=== PATIENT | female | born 1995 | race African-American/Black ===

== ENCOUNTER 2019-11-08 12:16 | Emergency (ER) | payer OTHER ==
--- OUTSIDE RECORDS SUMMARY | 2019-11-08 12:18 | XMS REPORT | Continuity of Care Document ---
:1995 Author Organization [facility] t Address [address] [place] [address] Care Team Providers Name Role Phone Stalin Avendano MD Attending Clinician Problems This patient has no known problems. Allergies, Adverse Reactions, Alerts This patient has no known allergies or adverse reactions. Medications This patient has no known medications. Procedures This patient has no known procedures. Encounters Start End Encounter Admission Attending Care Care Encounter Source Date/Time Date/Time Type Type Clinicians Facility Department ID 2019-11-07 2019-11-07 Emergency ABIGAIL Avendano [phone] [id number] 07:31:00 11:04:00 Fareed Veras [id number] [place] [id number] [place] [phone] [id number] Results This patient has no known results.
--- OUTSIDE RECORDS SUMMARY | 2019-11-08 12:18 | XMS REPORT | Summary of Care ---
:1995 Author Organization [facility] - [facility] Address [address] [place] [address] Care Team Providers Name Role Phone Pcp, Does Not Have A Primary Care Provider Reason for Referral Radiology Services (STAT) Status Reason Specialty Diagnoses / Referred By Referred To Procedures Contact Contact New Request Diagnostic Diagnoses Upper respiratory tract infection, unspecified type Fareed Avendano Radiology Procedures XR CHEST 1 TRINA Gant MD [address] [address] Reason for Visit Reason Comments Sore Throat Ear Pain Nosebleed Auth/Cert Status Reason Specialty Diagnoses / Referred By Referred To Procedures Contact Contact Emergency Medicine [facility] Em ergency Dept [address] [place] [id number] Fax: Encounter Details Date Type Department Care Team Description 11/07/2019 Emergency ADC-Emergency Fareed Avendano, Upper re spiratory tract infection, unspecified type (Primary Dx); Department Bronchitis [address] [place] [address] [address] [place] [address] [id number] [place], [place] [id number] Allergies No Known Allergiesdocumented as of this encounter (statuses as of 11/07/2019) Medications Medication Sig Dispensed Refills Start Date End Date Status azithromycin 250 mg Take 1 tablet by 6 tablet 0 11/07/2019 Active tabletIndications: mouth Upper respiratory SEE-INSTRUCTIONS. tract infection, Take 500 mg day unspecified type 1, then 250 mg days 2 to 5. albuterol 90 Inhale 2 Puffs 8.5 g 0 11/07/2019 A ctive mcg/actuation every 4 (four) inhalerIndications: hours as needed Upper respiratory for Wheezing or tract infection, Shortness of unspecified type Breath. predniSONE 20 mg Take 2 tablets by 12 tablet 0 11/08/2019 10/0 07/2019 Active tabletIndications: mouth daily for 6 Upper respiratory days. tract infection, unspecified type benzonatate 100 mg Take 1 capsule by 20 capsule 0 11/07/2019 Active capsuleIndications: mouth 3 (three) Upper respiratory times daily as tract infection, needed for Cough. unspecified type documented as of this encounter (statuses as of 11/07/2019) Active Problems No known active problemsdocumented as of this encounter (statuses as of 11/07/2019) Social History Tobacco Use Types Packs/Day Years Used Date Never Assessed Sex Assigned at Date Recorded Not on file COVID-19 Exposure Response Date Recorded In the last month, have you been in contact with No / Unsure 11/07/2019 7:27 AM CDT someone who was confirmed or suspected to have Coronavirus / COVID-19? documented as of this encounter Last Filed Vital Signs Vital Sign Reading Time Taken Comments Blood Pressure 128/77 11/07/2019 7:29 AM CDT Pulse 71 11/07/2019 7:29 AM CDT Temperature 37.1 C (98.7 F) 11/07/2019 7:29 AM CDT Respiratory Rate 16 11/07/2019 7:29 AM CDT Oxygen Saturation 100% 11/07/2019 7:29 AM CDT Inhaled Oxygen Concentration - - Weight 66.2 kg (146 lb) 11/07/2019 7:29 AM CDT Height - - Body Mass Index - - documented in this encounter Discharge Instructions Fareed Alan MD - 11/07/2019DIAGNOSIS 1. UPPER RESPIRATORY INFECTION 2. MILD BRONCHITIS 3. RECURRENT NOSEBLEEDING NO LIFE-THREATENING FINDINGS ON TODAY'S EXAM. PROCEDURES IN THE ER TODAY: NONE MEDICATIONS ADMINISTERED IN THE ER TODAY: PREDNISONE AZITHROMYCIN YOUR PRESCRIPTIONS AND [id number] MEDICATION RECOMMENDATIONS: FOR THE NOSE BLEED, RECOMMEND USING AFRIN NASAL SPRAY, 2 SPRAY IN THE BLEEDING NOSTRIL. SQUEEZE SOFTPART OF NOSTRILS/NOSE CLOSED FOR 15 MINUTES. REPEAT SQUEEZING NOSE UNTIL BLEEDING STOPS. AFRIN IS AVAILABLE [id number] WITHOUT A PRESCRIPTION. RECOMMEND PREDNISONE PRESCRIBED UNTIL ALL GONE FOR BRONCHITIS RECOMMEND AZITHROMYCIN (AN ANTIBIOTIC) PRESCRIBED UNTIL ALL GONE RECOMMEND TESSALON (BENZONATATE) PRESCRIBED FOR COUGH RECOMMEND ALBUTEROL INHALER PRESCRIBED FOR WHEEZING AND/OR SHORTNESS OF BREATH SPECIAL CARE INSTRUCTIONS: SEE ATTACHMENTS FOLLOW-UP RECOMMENDATIONS: RECOMMEND FOLLOW-UP WITH A PRIMARY CARE PROVIDER IN A WEEK, ESPECIALLY IF NO IMPROVEMENT IN SYMPTOMS. TO FOLLOW-UP WITHIN THE [facility], TRY THESE OPTIONS (CLINIC APPOINTMENTS AVAILABLE ON [id number] BASIS): 1. SCHEDULE AN APPOINTMENT ONLINE AT [email or web address] 2. OR CALL THE [facility] AT OR 3. OR CALL YOUR [facility] PHYSICIAN'S OFFICE DIRECTLY IF YOU ARE ALREADY AN ESTABLISHED [facility] PATIENT. RETURN TO ER FOR WORSENING OF SYMPTOMS. AttachmentsThe following attachments cannot be sent through Care Everywhere. Bronchitis, Acute (Tristanian)Nosebleed (Tristanian)Oxymetazoline nasal spray (Tristanian)Azithromycin tablets (Tristanian)Albuterol inhalation aerosol (Tristanian) Benzonatate capsules (Tristanian)documented in this encounter ED Notes Shanta Aly RN - 11/07/2019 7:28 AM CDTPatient c/o sore throat, nose bleeding and bilateral ear pain that started yesterday. Patient arrived here from [place] with [facility] and thinks the climate change may have affected her. Fareed Avendano MD - 11/07/2019 7:22 AM CDT [facility] Emergency Department Note Patient Name: Fabiana Oneal Date of : 1995 24 year old female Treatment Room: [address] Primary Care Physician: No primary care provider on file. Patient Escorted by: Self [9] Mode of Arrival: Personal means [1] EMS Treatment Prior to ED Arrival: Travel and Exposure Screening: Symptoms Does patient have any of these symptoms?: (not recorded) Exposure Screening Has patient had contact with someone with a communicable disease in the last month?: (not recorded) Diseases exposed to:: (not recorded) Is Patient ?: (not recorded) Exposure Date: (not recorded) Chief Complaint: Chief Complaint Patient presents with Sore Throat Ear Pain Nosebleed History of Present Illness: Travelling with [employer] from [place] for [place] for assistance with amoeba water supplyissue. Reports couple days of right ear ache, no discharge or bleeding. Recurrent nose bleeding, resolves without medication. (+) nasal congestion. Sore throat. No fever. No dysphagia. No speech change. Episodic dyspnea without respiratory distress. Maybe wheezing. Episodic non-productive cough. Non-focal chest tightness, episodic, presently resolved. No nausea, vomiting, diarrhea. No known close sick contacts. History of possible asthma as child, but no albuterol use for several years. Returning to [place] in 1 week. History provided by: Patient Past Medical History/Immunizations: History reviewed. No pertinent past medical history. Allergies: No Known Allergies Past Social History: Substance & Sexual Activity No substance use or sexual activity history on file. Past Surgical History: History reviewed. No pertinent surgical history. Review of Systems: Review of Systems Constitutional: Negative for fever. HENT: Positive for congestion, ear pain, nosebleeds and sore throat. Eyes: Negative. Respiratory: Positive for cough, chest tightness and shortness of breath. Cardiovascular: Negative. Gastrointestinal: Negative. Genitourinary: Negative. Musculoskeletal: Negative. Skin: Negative. Neurological: Negative. Psychiatric/Behavioral: Negative. Physical Exam: ED Triage Vitals [11/07/19 0729] Weight 66.2 kg (146 lb) Actual or estimated Height BP 128/77 Pulse 71 Resp 16 Temp 37.1 C (98.7 F) Temp source Oral SpO2 100 % Measured on Room air Physical Exam Vitals signs and nursing note reviewed. Constitutional: General: She is not in acute distress. Appearance: Normal appearance. She is not ill-appearing, toxic-appearing or diaphoretic. HENT: Head: Normocephalic and atraumatic. Right Ear: Tympanic membrane, ear canal and external ear normal. Left Ear: Tympanic membrane, ear canal and external ear normal. Nose: Nose normal. Mouth/Throat: Mouth: Mucous membranes are moist. Pharynx: No oropharyngeal exudate or posterior oropharyngeal erythema. Eyes: Extraocular Movements: Extraocular movements intact. Conjunctiva/sclera: Conjunctivae normal. Pupils: Pupils are equal, round, and reactive to light. Cardiovascular: Rate and Rhythm: Normal rate and regular rhythm. Pulmonary: Effort: Pulmonary effort is normal. No respiratory distress. Breath sounds: Normal breath sounds. No stridor. No wheezing, rhonchi or rales. Chest: Chest wall: No tenderness. Musculoskeletal: Normal range of motion. Lymphadenopathy: Cervical: Cervical adenopathy (left) present. Skin: General: Skin is warm and dry. Neurological: General: No focal deficit present. Mental Status: She is alert. Psychiatric: Mood and Affect: Mood normal. Radiology: Hospital Encounter on 11/07/19 XR CHEST 1 VW Narrative XR CHEST 1 VW HISTORY: 24 years-old; Female; dyspnea, cough COMPARISON: None FINDINGS: The lungs are clear with no focal consolidation. There is no pleural effusion or pneumothorax. The cardiomediastinal silhouette is normal. No acute osseous abnormality is identified. S-shaped curvature of the spine is seen. Impression No acute cardiopulmonary abnormality Preliminary Report Dictated by Resident: Kelsea Arias I, Felipe Sepulveda MD., have reviewed this study and agree with the above report. Lab Results (24h): Recent Results (from the past 24 hour(s)) ADC,CLC OR LCC ONLY - INFLUENZA A & B DIRECT ANTIGEN Collection Time: 11/07/19 9:32 AM Specimen: NASOPHARYNGEAL SWAB Result Value Ref Range Influenza A Negative Negative Influenza B Negative Negative RAPID STREP SCREEN FOR GROUP A Collection Time: 11/07/19 9:32 AM Specimen: THROAT; Swab Result Value Ref Range Streptococcus pyogenes (group A) antigen Positive (A) Negative COVID-19 (ID NOW RAPID TESTING) Collection Time: 11/07/19 9:34 AM Specimen: NASOPHARYNGEAL SWAB Result Value Ref Range SARS-CoV-2 Rapid ID NOW Not Detected Not Detected EKG: none Orders and Treatments: Orders Placed This Encounter Procedures XR CHEST 1 VW ADC,CLC OR LCC ONLY - INFLUENZA A & B DIRECT ANTIGEN RAPID STREP SCREEN FOR GROUP A COVID-19 (ID NOW RAPID TESTING) Orders Placed This Encounter Medications predniSONE (DELTASONE) tablet 40 mg azithromycin (ZITHROMAX) tablet 500 mg azithromycin 250 mg tablet albuterol 90 mcg/actuation inhaler predniSONE 20 mg tablet benzonatate 100 mg capsule ED COURSE MDM: MDM Reviewed: nursing note and vitals Interpretation: labs and x-ray Scoring Tools: No data recorded Diagnosis/Impression: ICD-10-CM ICD-9-CM 1. Upper respiratory tract infection, unspecified type J06.9 465.9 2. Bronchitis J40 490 Disposition/Condition: ED Disposition ED Disposition Condition Comment Disch - Home Stable Discharge Medications: Patient's Medications START taking these medications ALBUTEROL 90 MCG/ACTUATION INHALER Inhale 2 Puffs every 4 (four) hours as needed for Wheezing orShortness of Breath. AZITHROMYCIN 250 MG TABLET Take 1 tablet by mouth SEE-INSTRUCTIONS. Take 500 mg day 1, then 250 mg days 2 to 5. BENZONATATE 100 MG CAPSULE Take 1 capsule by mouth 3 (three) times daily as needed for Cough. PREDNISONE 20 MG TABLET Take 2 tablets by mouth daily for 6 days. CONTINUE taking these medications which have NOT CHANGED No medications on file START taking Modified Medications as Prescribed No medications on file STOP taking these medications No medications on file Follow-up: PCP upon return home Electronically signed by: Fareed Avendano MD 11/07/2019 7:47 AM documented in this encounter Plan of Treatment Health Maintenance Due Date Last Done Comments VARICELLA VACCINES (1 of 2 - 07/06/1995 2-dose childhood series) HPV VACCINES (1 - 2-dose series) 2005 Depression Screening 2006 DTaP,Tdap,and Td Vaccines (1 - 2013 Tdap) PAP SMEAR 07/06/2015 INFLUENZA VACCINE (#1) 2019 PNEUMOCOCCAL 0-64 YEARS COMBINED Aged Out No longer eligible based on SERIES patient's age to complete this topic documented as of this encounter Procedures Procedure Name Priority Date/Time Associated Diagnosis Comme nts COVID-19 (ID NOW STAT 11/07/2019 9:34 AM Upper respiratory Results for this RAPID TESTING) CDT tract infection, procedure are in unspecified type the results section. ADC,CLC OR LCC ONLY STAT 11/07/2019 9:32 AM Upper respirat ory Results for this - INFLUENZA A & B CDT tract infection, proced ure are in DIRECT ANTIGEN unspecified type the resul ts section. RAPID STREP SCREEN STAT 11/07/2019 9:32 AM Upper respirato ry Results for this FOR GROUP A CDT tract infection, procedure a re in unspecified type the results section. XR CHEST 1 VW STAT 11/07/2019 8:48 AM Upper respiratory Re sults for this CDT tract infection, procedure a re in unspecified type the results section. NOTICE OF PRIVACY Routine 11/07/2019 7:21 AM PRACTICES CDT CONSENT/REFUSAL FOR Routine 11/07/2019 7:21 AM DIAGNOSIS AND CDT TREATMENT documented in this encounter Results COVID-19 (ID NOW RAPID TESTING) (11/07/2019 9:34 AM CDT) SARS-CoV-2 Rapid ID Not Detected Not Detected [facility] Specimen Swab - NASOPHARYNGEAL SWAB Narrative Performed At [facility] COVID-19 Assay is an isothermal nucleic [facility] acid amplification test intended for the qualitative detection of nucleic acid from SARS-CoV-2 viral RNA in nasopharyngeal ([employer]VAGE [employer]PERVIS[employer]) specimens. It is used under Emergency Use Authorization (EUA) by FDA. The limit of detection (LOD) of the assay is 125 Genome Equivalents/mL. A positive result is indicative of the presence of SARS-CoV-2 RNA. Clinical correlation with patient history and other diagnostic information is necessary to determine patient infection status. A negative (Not Detected) result does not preclude SARS-CoV-2 infection. In patients with clinical symptoms and other tests that are consistent with SARS-CoV-2 infection, negative results should be treated as presumptive negative and a new specimen should be tested with alternative PCR molecular test. Invalid: Please collect a new specimen for repeat patient testing if clinically indicated. Performing Organization Address City/[facility]/Zipcode Phone Number [facility] CLIA: [id number] [place] [address] [place] [address] RAPID STREP SCREEN FOR GROUP A (11/07/2019 9:32 AM CDT) Streptococcus pyogenes Positive (A) Negative [facility] (group A) antigen [facility] Specimen Swab - THROAT Performing Organization Address [facility] Phone Number [facility] CLIA: [id number] [place] [address] ADC,CLC OR LCC ONLY - INFLUENZA A & B DIRECT ANTIGEN (11/07/2019 9:32 AM CDT) Pathologist Sig nature Influenza A Negative Negative [facility] Influenza B Negative Negative [facility] Specimen Swab - NASOPHARYNGEAL SWAB Performing Organization Address City/State/Zipcode Phone Number [facility] CLIA: [id number] [place] [address] XR CHEST 1 VW (11/07/2019 8:48 AM CDT) Specimen Impressions Performed At PACS/VR/DOSE No acute cardiopulmonary abnormality Preliminary Report Dictated by Resident: Felipe Franco MD., have reviewed this study and agree with the above report. Narrative Performed At XR CHEST 1 VW PACS/VR/DOSE HISTORY: 24 years-old; Female; dyspnea, cough COMPARISON: None FINDINGS: The lungs are clear with no focal conso lidation. There is no pleural effusion or pneumothorax. The cardiomediastinal silhouette is norm al. No acute osseous abnormality is identified. S-shaped c urvature of the spine is seen. Procedure Note [facility], Radiant Results Inft User - 2019 8:55 AM CDT XR CHEST 1 VW HISTORY: 24 years-old; Female; dyspnea, cough COMPARISON: None FINDINGS: The lungs are clear with no focal conso lidation. There is no pleural effusion or pneumothorax. The cardiomediastinal silhouette is norm al. No acute osseous abnormality is identifi ed. S-shaped curvature of the spine is seen. IMPRESSION No acute cardiopulmonary abnormality Preliminary Report Dictated by Resident: Felipe Franco MD., have reviewed th is study and agree with the above report. Performing Organization Address City/State/Zipcode Phone Number [facility]/VR/DOSE documented in this encounter Visit Diagnoses Diagnosis Upper respiratory tract infection, unspe cified type - Primary Bronchitis Bronchitis, not specified as acute or ch ronic documented in this encounter Administered Medications Medication Order MAR Action Action Date Dose Rate Site azithromycin (ZITHROMAX) tablet 500 mg 500 mg, Oral, ONCE, 1 dose, Wed11/07/19 at 1145, SARY, Reason for Anti-Infective: Empiric Therapy for Suspected Infection, Empiric Thera py Site: Respiratory, Duration of therapy: 72 hours predniSONE (DELTASONE) tablet 40 mg 40 mg, Oral, ONCE, 1 dose, 11/07/19 at 1145, SARY documented in this encounter Additional Health Concerns Infection Onset Date Last Indicated Resolved Time COVID-19 Rule Out 11/07/2019 11/07/2019 11/07/2019 10: 06 AM CDT documented as of this encounter documented as of this encounter
[2019-11-08] MEDS ORDERED: IBUPROFEN 200 MG TAB PO ONE (13:12)
[2019-11-08] MEDS ORDERED: IBUPROFEN 400 MG TAB ONE (13:13)
--- NOTE | 2019-11-08 13:46 | RAD REPORT ---
EXAM DESCRIPTION: RAD - Chest Single View - 11/08/2019 1:12 pm CLINICAL HISTORY: Congestion;Cough COMPARISON: None TECHNIQUE: AP portable chest image was obtained 11/08/2019 1:12 pm . FINDINGS: Lungs are clear. Heart and vasculature are normal. No measurable pleural effusion and no p neumothorax. No acute bony abnormality seen. No acute aortic findings suspected. IMPRESSION: No acute cardiopulmonary process.
--- NOTE | 2019-11-08 15:28 | EDPHYS ---
Physician Documentation [facility] Name: Fabiana Oneal Age: 24 yrs Sex: Female : 1995 Arrival Date: 11/08/2019 Time: 12:18 Bed 18 Private MD: ED Physician Sudhakar Carver HPI: 11/07 16:06 This 24 yrs old Black Female presents to ER via Ambulatory with complaints of Shortness kdr Of Breath. 16:06 The patient has shortness of breath at rest, with light activity. Onset: [facility] symptoms/episode began/occurred gradually, 3 day(s) ago. Duration: The symptoms are continuous, and are steadily getting worse. The patient's shortness of breath is aggravated by eating, exertion, light activity, is alleviated by nothing. Associated signs and symptoms: Pertinent positives: non-productive cough, Pertinent negatives: non-productive cough, diaphoresis, dizziness, fever, hemoptysis, loss of consciousness, nausea, numbness in extremities, visual changes. Severity of symptoms: At their worst the symptoms were moderate severe just prior to arrival, in the emergency department the symptoms are unchanged. The patient has not experienced similar symptoms in the past. 18:47 The patient has been recently seen by a physician: yesterday, The patient was seen at [facility] in [place] yesterday and had a full workup including COVID. All were negative. She continues to not feel well today but is not appreciably worse - just persistent. Historical: - Allergies: 12:26 eggs; ll1 - PSHx: 12:26 None; ll1 - Immunization history:: Flu vaccine is up to date. - Social history:: Smoking status: Patient denies any tobacco usage or history of. ROS: 18:47 Constitutional: Negative for fever, chills, and weight loss, Eyes: Negative for injury, kdr pain, redness, and discharge, Neck: Negative for injury, pain, and swelling, Cardiovascular: Negative for chest pain, palpitations, and edema, Abdomen/GI: Negative for abdominal pain, nausea, vomiting, diarrhea, and constipation, Back: Negative for injury and pain, : Negative for injury, bleeding, discharge, and swelling, MS/Extremity: Negative for injury and deformity, Skin: Negative for injury, rash, and discoloration, Neuro: Negative for headache, weakness, numbness, tingling, and seizure activity. Psych: Negative for depression, anxiety, suicide ideation, homicidal ideation, and hallucinations, Allergy/Immunology: Negative for hives, rash, and allergies, Endocrine: Negative for neck swelling, polydipsia, polyuria, polyphagia, and marked weight changes, Hematologic/Lymphatic: Negative for swollen nodes, abnormal bleeding, and unusual bruising. 18:47 Respiratory: Positive for cough, with no reported sputum, dyspnea on exertion, shortness of breath, Negative for hemoptysis, orthopnea, pleurisy, sputum production, wheezing. Exam: 18:47 Constitutional: This is a well developed, well nourished patient who is awake, alert, kdr and in no acute distress. Head/Face: Normocephalic, atraumatic. Neck: Trachea midline, no thyromegaly or masses palpated, and no cervical lymphadenopathy. Supple, full range of motion without nuchal rigidity, or vertebral point tenderness. No Meningismus. 18:47 Chest/axilla: Inspection: no acute changes. Vital Signs: 12:22 BP 120 / 85; Pulse 76; Resp 18; Temp 98.4; Pulse Ox 100% ; Weight 66.22 kg; Height 5 ll1 ft. 4 in. (162.56 cm); Pain 8/10; 15:24 BP 117 / 86; Pulse 81; Resp 22; Temp 97.8; Pulse Ox 99% on R/A; ph 12:22 Body Mass Index 25.06 (66.22 kg, 162.56 cm) ll1 MDM: 14:47 ED course: Delay in care do to delay in return of strep results. kdr 15:27 Patient medically screened. kdr 18:47 Data reviewed: vital signs, nurses notes, lab test result(s), radiologic studies. kdr Counseling: I had a detailed discussion with the patient and/or guardian regarding: the historical points, exam findings, and any diagnostic results supporting the discharge/admit diagnosis, lab results, radiology results, the need for outpatient follow up. 11/07 12:50 Order name: COVID-19 kdr 11/07 12:50 Order name: Strep; Complete Time: 15:10 kdr 11/07 12:50 Order name: CXR XRAY; Complete Time: 13:58 kdr 11/07 15:01 Order name: Throat Culture EDMS Administered Medications: 13:29 Drug: Ibuprofen 600 mg Route: PO; ph 13:30 Follow up: Response: No adverse reaction ph Disposition: 11/08/19 15:27 Discharged to Home. Impression: Bronchitis, not specified as acute or chronic, Acute pharyngitis, Shortness of breath. - Condition is Stable. - Discharge Instructions: Pharyngitis, Shortness of Breath, [id number], Acute Bronchitis, Vfrn-[id number], Upper Respiratory Infection, Adult, [id number]. - Medication Reconciliation Form, Thank You Letter, Work release form form. - Follow up: Private Physician; When: 2 - 3 days; Reason: If symptoms return, Further diagnostic work-up, Recheck today's complaints, Continuance of care, Re-evaluation by your physician. - Problem is new. - Symptoms have improved. - Notes: Continue on your current medications. Signatures: Dispatcher [employer] EDMS Sudhakar Carver MD MD [facility] Maggie Galindo RN RN Isadora Cortes RN RN ll1 Corrections: (The following items were deleted from the chart) 15:49 15:27 11/08/2019 15:27 Discharged to Home. Impression: Bronchitis, not specified as ph acute or chronic; Acute pharyngitis; Shortness of breath. Condition is Stable. Forms are Medication Reconciliation Form, Thank You Letter, Antibiotic Education, Prescription Opioid Use. Follow up: Private Physician; When: 2 - 3 days; Reason: If symptoms return, Further diagnostic work-up, Recheck today's complaints, Continuance of care, Re-evaluation by your physician. Problem is new. Symptoms have improved. kdr
--- NOTE | 2019-11-08 15:28 | ER ---
Nurse's Notes [facility] Name: Fabiana Oneal Age: 24 yrs Sex: Female : 1995 Arrival Date: 11/08/2019 Time: 12:18 Bed 18 Private MD: Diagnosis: Bronchitis, not specified as acute or chronic;Acute pharyngitis;Shortness of breath Presentation: 11/07 12:22 Chief complaint: Patient states: Cough, congestion, L earache, and PICKERING for 3 days. No ll1 fever. Covid, flu, and strep negative at [facility] yesterday. Coronavirus screen: Client denies travel out of the [place] in the last 14 days. Ebola Screen: Patient denies travel to an Ebola-affected area in the 21 days before illness onset. Initial Sepsis Screen: Does the patient meet any 2 criteria? No. Patient's initial sepsis screen is negative. Risk Assessment: Do you want to hurt yourself or someone else? Patient reports no desire to harm self or others. Onset of symptoms was November 06, 2019. 12:22 Method Of Arrival: Ambulatory ll1 12:22 Acuity: PERNELL 4 ll1 13:28 Initial Sepsis Screen: Does the patient have a suspected source of infection? No. ph Patient's initial sepsis screen is negative. Historical: - Allergies: 12:26 eggs; ll1 - PSHx: 12:26 None; ll1 - Immunization history:: Flu vaccine is up to date. - Social history:: Smoking status: Patient denies any tobacco usage or history of. Screenin:28 Abuse screen: Denies threats or abuse. Denies injuries from another. Nutritional ph screening: No deficits noted. Tuberculosis screening: No symptoms or risk factors identified. Fall Risk None identified. Assessment: 13:27 General: Appears in no apparent distress. comfortable, well groomed, Behavior is calm, ph cooperative, appropriate for age. Pain: Complains of pain in left ear. Neuro: Level of Consciousness is awake, alert, obeys commands. Cardiovascular: Capillary refill < 3 seconds in bilateral fingers Patient's skin is warm and dry. Respiratory: Reports shortness of breath on exertion cough that is Airway is patent Respiratory effort is even, unlabored, Respiratory pattern is regular, symmetrical. GI: No signs and/or symptoms were reported involving the gastrointestinal system. EENT: Reports nasal congestion nasal discharge pain in left ear when swallowing. Derm: Skin is intact, is healthy with good turgor, Skin is pink, warm \T\ dry. Musculoskeletal: Circulation, motion, and sensation intact. Range of motion: intact in all extremities. 15:23 Reassessment: Patient appears in no apparent distress at this time. Patient and/or ph family updated on plan of care and expected duration. Pain level reassessed. Patient is alert, oriented x 3, equal unlabored respirations, skin warm/dry/pink. Pt ambulated to assess Spo2, while resting Spo2 98% RA, HR 66, after ambulating Spo2 99% RA, HR 86. Vital Signs: 12:22 BP 120 / 85; Pulse 76; Resp 18; Temp 98.4; Pulse Ox 100% ; Weight 66.22 kg; Height 5 ll1 ft. 4 in. (162.56 cm); Pain 8/10; 15:24 BP 117 / 86; Pulse 81; Resp 22; Temp 97.8; Pulse Ox 99% on R/A; ph 12:22 Body Mass Index 25.06 (66.22 kg, 162.56 cm) ll1 ED Course: 12:18 Patient arrived in ED. ds1 12:25 Triage completed. ll1 12:26 Arm band placed on Patient placed in an exam room, on a stretcher. ll1 12:27 Maggie Galindo, RN is Primary Nurse. ph 12:34 Sudhakar Carver MD is Attending Physician. kdr 13:12 CXR XRAY In Process Unspecified. EDMS 13:28 Patient has correct armband on for positive identification. Bed in low position. Call ph light in reach. Side rails up X 1. Pulse ox on. NIBP on. Door closed. Noise minimized. Warm blanket given. 13:28 No provider procedures requiring assistance completed. ph 13:28 Strep swab sent to lab. ph 15:24 Patient did not have IV access during this emergency room visit. ph Administered Medications: 13:29 Drug: Ibuprofen 600 mg Route: PO; ph 13:30 Follow up: Response: No adverse reaction ph Outcome: 15:27 Discharge ordered by . kdr 15:48 Discharged to home ambulatory. ph 15:48 Condition: good 15:48 Discharge instructions given to patient, Instructed on discharge instructions, follow up and referral plans. Demonstrated understanding of instructions, follow-up care. 15:49 Patient left the ED. ph Addendum: 11/10/2019 18:46 Addendum: COVID-19 Result: Negative result given to RN to notify pt. Attempted to i w contact pt regarding negative COVID-19 swab results. Left voice mail. 11/11/2019 07:18 Addendum: Other Pt called back and negative COVID-19 result was given. a a5 Signatures: Dispatcher [employer] EDIA Sudhakar Carver MD MD kdr Sanford, Demi ds1 Marly Santiago RN RN iw Smitha Herbert RN RN aa5 Maggie Galindo RN RN ph Isadora Cortes RN RN ll1
[2019-11-08 15:55] VITALS: BP 117/86; TEMP 97.8; O2SAT 99
== END 2019-11-08 15:49 | disposition home or self-care (01) ==
LOC: ER 12:16
DX: J40 Bronchitis, not specified as acute or chronic (principal); Z20.828 Contact with and (suspected) exposure to other viral communicable diseases; J02.9 Acute pharyngitis, unspecified; Z91.012 Allergy to eggs
CPT/HCPCS: 87070; 87081; 71045; 99284; U0002